=== PATIENT | male | born 1995 | race Caucasian/White ===

== ENCOUNTER 2018-05-16 16:47 | Emergency (ER) | payer MEDICAID ==
[2018-05-16 17:09] VITALS: BMI 25.8
[2018-05-16 17:10] VITALS: RESP 18; TEMP 98.1; O2SAT 100
[2018-05-16 18:06] LABS: PH,URINE 6.5 (4.7-8.0); URINE BILIRUBIN NEGATIVE (NEGATIVE); URINE BLOOD TRACE-LYSED (NEGATIVE); URINE GLUCOSE (UA) NEGATIVE (NEGATIVE); URINE LEUKOCYTE ESTERASE NEGATIVE Leu/uL (NEGATIVE); URINE PROTEIN TRACE mg/dL (<30 mg/dL)
[2018-05-16 18:08] LABS: ACETAMINOPHEN < 10.0 ug/ml (10.0-20.0); SALICYLATE < 1 mg/dL (2.0-20.0)
[2018-05-16 18:09] LABS: ALB/GLOB RATIO 1.6 (1.1-1.8); ALT/SGPT 37 U/L (7-56); AST/SGOT 25 U/L (17-59); BLOOD UREA NITROGEN 10 mg/dL (7-21); CALCIUM 9.8 mg/dL (8.4-10.5); GFR NON-AFRICAN AMERICAN > 60
[2018-05-16 18:16] LABS: URINE APPEARANCE CLEAR (CLEAR); URINE COLOR YELLOW (YELLOW)
[2018-05-16 18:18] LABS: BASO # 0.03 K/mm3 (0.0-2.0); BASO % 0.7 % (0.0-3.0); EOS # 0.1 (0.0-0.7); EOS % 1.2 % (1.5-5.0); GRAN # 2.34 (1.4-6.5); GRAN % 53.9 % (50.0-68.0); HEMOGLOBIN 15.2 g/dL (14.0-18.0); LYMPH # 1.6 (1.2-3.4); LYMPH % 36.3 % (22.0-35.0); MEAN CELL VOLUME 78.5 fl (80.0-105.0); MEAN CORPUSCULAR HEMOGLOBIN 27.7 pg (25.0-35.0); MEAN CORPUSCULAR HGB CONC 35.3 g/dl (31.0-37.0); MONO # 0.3 (0.1-0.6); MONO % 7.9 % (1.0-6.0); RBC 5.49 10^6/uL (3.5-6.1); RED CELL DISTRIBUTION WIDTH 12.8 % (11.5-14.5); WHITE BLOOD COUNT 4.3 10^3/ul (4.5-11.0)
[2018-05-16 18:23] LABS: URINE BACTERIA MANY (NEG); URINE COARSE GRANULAR CAST TRACE /hpf (0-2); URINE WBC 0 - 2 /hpf (0-6)
--- NOTE | 2018-05-16 18:39 | RAD ---
Date of service: 05/16/2018 HISTORY: pes eval COMPARISON: No prior. FINDINGS: LUNGS: No active pulmonary disease. PLEURA: No significant pleural effusion identified, no pneumothorax apparent. CARDIOVASCULAR: Normal. OSSEOUS STRUCTURES: No significant abnormalities. VISUALIZED UPPER ABDOMEN: Normal. OTHER FINDINGS: None. IMPRESSION: No active disease.
--- NOTE | 2018-05-16 18:51 | ED PDOC ---
Arrival/HPI - General Chief Complaint: Anxiety Time Seen by Provider: 05/16/18 17:17 Historian: Patient - History of Present Illness Narrative History of Present Illness (Text): 05/16/18 18:44 22yr old male presents today with anxiety and depression. pt states he has a lot of stress at work and has been having trouble sleeping. pt states he is tired but when he tries to rest his mind just keeps racing. pt denies SI or HI. pt denies cp or sob. no abdominal pain. pt denies hx of depression. no other complaints. Past Medical History - Provider Review Nursing Documentation Reviewed: Yes - Travel History Have you recently traveled outside [place] w/in the past 3 mons?: No - Infectious Disease Hx of Infectious Diseases: None - Tetanus Immunization Tetanus Immunization: Unknown - Past Medical History Past Medical History: No Previous - Cardiac Hx Cardiac Disorders: No - Pulmonary Hx Respiratory Disorders: No - Neurological Hx Neurological Disorder: No - HEENT Hx HEENT Disorder: No - Renal Hx Renal Disorder: No - Endocrine/Metabolic Hx Endocrine Disorders: No - Hematological/Oncological Hx Blood Disorders: No - Integumentary Hx Dermatological Disorder: No - Musculoskeletal/Rheumatological Hx Musculoskeletal Disorders: No - Gastrointestinal Hx Gastrointestinal Disorders: No - Genitourinary/Gynecological Hx Genitourinary Disorders: No - Psychiatric Hx Psychophysiologic Disorder: Yes Hx Anxiety: Yes Hx Depression: Yes Hx Substance Use: No - Surgical History Other/Comment: nasal - Anesthesia Hx Anesthesia: Yes Hx Anesthesia Reactions: No Hx Malignant Hyperthermia: No - Suicidal Assessment Feels Threatened In Home Enviroment: No Family/Social History - Physician Review Nursing Documentation Reviewed: Yes Family/Social History: Unknown Family HX Smoking Status: Heavy Smoker > 10 Cigarettes Daily Hx Alcohol Use: No Hx Substance Use: No Allergies/Home Meds Allergies/Adverse Reactions: Allergies No Known Allergies Allergy (Verified 04/23/15 16:24) Home Medications: Home Meds Medication Instructions Recorded Confirmed Unobtainable [Unobtainable] 04/23/15 04/23/15 Review of Systems - Review of Systems Constitutional: absent: Fatigue, Fevers Respiratory: absent: SOB, Cough Cardiovascular: absent: Chest Pain, Palpitations Gastrointestinal: absent: Abdominal Pain, Nausea, Vomiting Genitourinary Male: absent: Dysuria Musculoskeletal: absent: Arthralgias, Back Pain, Neck Pain Skin: absent: Rash, Pruritis Neurological: absent: Headache, Dizziness Psychiatric: Anxiety, Depression. absent: Suicidal Ideation Physical Exam Vital Signs Reviewed: Yes Vital Signs Temp Pulse Resp BP Pulse Ox 05/16/18 18:31 103 H 18 134/73 100 05/16/18 16:56 98.1 F 86 18 118/77 100 Temperature: Afebrile Blood Pressure: Normal Pulse: Regular Respiratory Rate: Normal Appearance: Positive for: Well-Appearing, Non-Toxic, Comfortable Pain Distress: None Mental Status: Positive for: Alert and Oriented X 3 - Systems Exam Head: Present: Atraumatic Mouth: Present: Moist Mucous Membranes Neck: Present: Normal Range of Motion Respiratory/Chest: Present: Clear to Auscultation, Good Air Exchange. No: Respiratory Distress, Accessory Muscle Use Cardiovascular: Present: Regular Rate and Rhythm, Normal S1, S2. No: Murmurs Abdomen: No: Tenderness Upper Extremity: Present: Normal ROM Lower Extremity: Present: Normal ROM Neurological: Present: GCS=15, Speech Normal Skin: Present: Warm, Dry, Normal Color. No: Rashes Psychiatric: Present: Alert, Oriented x 3 Medical Decision Making ED Course and Treatment: 05/16/18 18:52 Patient is nontoxic well-appearing in no distress vital signs are stable. CBC WNL CMP WNL Tylenol WNL Salicylate WNL Alcohol level WNL Urine drug screen wnl UA; wnl cxr: wnl ekg normal sinus rhythm at 79 bpm normal axis normal intervals no ST elevations pt is medically cleared for PES evaluation Patient was seen and evaluated by PES screener: daniele Patient cleared psychiatrically for discharge. Patient was advised to follow-up with [facility] and his primary care physician. He was advised to return immediately if symptoms worsen persist or if new concerning symptoms develop Impression; anxiety Followup with behavioral health Follow up with the primary care physician within the next 2 days return immediately if symptoms worsen,persist or if new symptoms develop. 05/16/18 19:49 - Lab Interpretations Lab Results: 05/16/18 17:40 05/16/18 17:40 Lab Results 05/16/18 17:40: Alcohol, Quantitative < 10 05/16/18 17:40: Salicylates < 1 L, Acetaminophen < 10.0 L 05/16/18 17:40: Urine Opiates Screen Negative, Urine Methadone Screen Negative, Ur Barbiturates Screen Negative, Ur Phencyclidine Scrn Negative, Ur Amphetamines Screen Negative, U Benzodiazepines Scrn Negative, U Oth Cocaine Metabols Negative, U Cannabinoids Screen Negative 05/16/18 17:40: Sodium 141, Potassium 3.7, Chloride 99, Carbon Dioxide 28, Anion Gap 18, BUN 10, Creatinine 0.9, Est GFR ( Amer) > 60, Est GFR (Non- Af Amer) > 60, Random Glucose 92, Calcium 9.8, Total Bilirubin 0.4, AST 25, ALT 37, Alkaline Phosphatase 51, Total Protein 8.0, Albumin 5.0 H, Globulin 3.0, Albumin/Globulin Ratio 1.6 05/16/18 17:40: Urine Color Yellow, Urine Appearance Clear, Urine pH 6.5, Ur Specific [place] 1.015, Urine Protein Trace H, Urine Glucose (UA) Negative, Urine Ketones Negative, Urine Blood Trace-lysed H, Urine Nitrate Negative, Urine Bilirubin Negative, Urine Urobilinogen 1.0 H, Ur Leukocyte Esterase Negative, Urine RBC 2 - 5, Urine WBC 0 - 2, Ur Epithelial Cells None, Urine Bacteria Many, Coarse Granular Casts Trace H, Urine Other Uyeast 05/16/18 17:40: WBC 4.3 L, RBC 5.49, Hgb 15.2, Hct 43.1, MCV 78.5 L, MCH 27.7, MCHC 35.3, RDW 12.8, Plt Count 275, MPV 11.0, Gran % 53.9, Lymph % (Auto) 36.3 H , [place] % (Auto) 7.9 H, Eos % (Auto) 1.2 L, Baso % (Auto) 0.7, Gran # 2.34, Lymph # (Auto) 1.6, [place] # (Auto) 0.3, Eos # (Auto) 0.1, Baso # (Auto) 0.03 - RAD Interpretation Radiology Orders: 05/16/18 17:18 CHEST PORTABLE [RAD] Stat Disposition/Present on Arrival - Present on Arrival Any Indicators Present on Arrival: No History of DVT/PE: No History of Uncontrolled Diabetes: No Urinary Catheter: No History of Decub. Ulcer: No History Surgical Site Infection Following: None - Disposition Have Diagnosis and Disposition been Completed?: Yes Diagnosis: Anxiety Disposition: HOME/ ROUTINE Disposition Time: 19:51 Patient Plan: Discharge Patient Problems: Current Active Problems Problem Status Onset Anxiety Acute Condition: GOOD Discharge Instructions (ExitCare): Anxiety, Adult (DC) Additional Instructions: Followup with behavioral health Follow up with the primary care physician within the next 2 days return immediately if symptoms worsen,persist or if new symptoms develop. Referrals: Mita Lovell MD [Primary Care Provider] - Follow up with primary [facility] [place] - Follow up with primary [facility] [Outside] - Follow up with primary [facility] [Outside] - Follow up with primary Forms: zanda (Kenyan), WORK NOTE
[2018-05-16 18:54] LABS: BARBITURATES, UR NEGATIVE (NEGATIVE); BENZODIAZEPINES, UR NEGATIVE (NEGATIVE); OPIATES, UR NEGATIVE (NEGATIVE); PHENCYCLIDINE, UR NEGATIVE (NEGATIVE)
[2018-05-16 19:59] VITALS: BP 107/67; PULSE 90
--- NOTE | 2018-05-18 05:16 | CARD ---
APPROVED REPORT Date of service: 05/16/2018 EKG Measurement Heart [id number] <Conclusion> Normal sinus rhythm Normal ECG
== END 2018-05-16 19:57 | disposition home or self-care (01) ==
LOC: ED 16:47
DX: F41.9 Anxiety disorder, unspecified (principal); F17.210 Nicotine dependence, cigarettes, uncomplicated

== ENCOUNTER 2018-05-17 22:46 | Emergency (ER) | payer MEDICAID ==
[2018-05-17 22:54] VITALS: BMI 26.2
[2018-05-17 22:57] VITALS: TEMP 98.5
--- NOTE | 2018-05-17 23:22 | ED PDOC ---
Arrival/HPI - General Historian: Patient <Jordan Gallegos - Last Filed: 05/17/18 23:58> - History of Present Illness Time/Duration: Other (4 days) Symptom Onset: Gradual Symptom Course: Unchanged <Candelaria Morejon - Last Filed: 05/18/18 01:33> - General Chief Complaint: Anxiety Time Seen by Provider: 05/17/18 23:05 - History of Present Illness Narrative History of Present Illness (Text): 05/17/18 23:19 Patient is a 22 year old male with no PMH presenting to the ED with trouble sleeping. Patient states that he is stressed at work and have been unable to sleep for the past 4 days. Patient states he is feeling depressed and anxious. Patient denies having any suicidal or homicidal ideation. Patient denies fevers , chills, shortness of breath, chest pain, abdominal pain, N/V/D, or any other complaints at this time. (Jordan Gallegos) Past Medical History - Provider Review Nursing Documentation Reviewed: Yes - Travel History Have you recently traveled outside [place] w/in the past 3 mons?: No - Past History Past History: No Previous - Infectious Disease Hx of Infectious Diseases: None - Tetanus Immunization Tetanus Immunization: Unknown - Past Medical History Past Medical History: No Previous - Cardiac Hx Cardiac Disorders: No Hx Hypertension: No - Pulmonary Hx Tuberculosis: No - Neurological HX Cerebrovascular Accident: No Hx Seizures: No - HEENT Hx HEENT Disorder: No - Renal Hx Renal Disorder: No - Endocrine/Metabolic Hx Endocrine Disorders: No - Hematological/Oncological Hx Cancer: No - Integumentary Hx Dermatological Disorder: No - Musculoskeletal/Rheumatological Hx Musculoskeletal Disorders: No - Gastrointestinal Hx Gastrointestinal Disorders: No - Genitourinary/Gynecological Hx Sexually Transmitted Diseases: No - Psychiatric Hx Psychophysiologic Disorder: Yes Hx Anxiety: Yes Hx Depression: Yes Hx Substance Use: No - Surgical History Other/Comment: nasal - Anesthesia Hx Anesthesia: Yes Hx Anesthesia Reactions: No Hx Malignant Hyperthermia: No - Suicidal Assessment Feels Threatened In Home Enviroment: No <Jordan Gallegos - Last Filed: 05/17/18 23:58> Family/Social History - Physician Review Nursing Documentation Reviewed: Yes Family/Social History: No Known Family HX Smoking Status: Heavy Smoker > 10 Cigarettes Daily Hx Alcohol Use: No Hx Substance Use: No <Jordan Gallegos - Last Filed: 05/17/18 23:58> Allergies/Home Meds <Jordan Gallegos - Last Filed: 05/17/18 23:58> <Candelaria Morejon - Last Filed: 05/18/18 01:33> Allergies/Adverse Reactions: Allergies No Known Allergies Allergy (Verified 05/17/18 22:53) Home Medications: Home Meds Medication Instructions Recorded Confirmed No Known Home Med 05/17/18 05/17/18 Review of Systems - Physician Review All systems were reviewed & negative as marked: Yes - Review of Systems Constitutional: Normal. absent: Fevers, Night Sweats Eyes: Normal ENT: Normal Respiratory: Normal. absent: SOB, Cough, Wheezing Cardiovascular: Normal. absent: Chest Pain Gastrointestinal: Normal. absent: Abdominal Pain, Stool Changes, Constipation, Diarrhea, Nausea, Vomiting Genitourinary Male: Normal. absent: Dysuria, Frequency Musculoskeletal: Normal Skin: Normal. absent: Rash, Pruritis, Skin Lesions, Laceration, Abscess Neurological: Normal, Headache. absent: Dizziness Psychiatric: Normal, Anxiety, Depression <Jordan Gallegos - Last Filed: 05/17/18 23:58> Physical Exam Vital Signs Reviewed: Yes Temperature: Afebrile Blood Pressure: Normal Pulse: Regular Respiratory Rate: Normal Appearance: Positive for: Well-Appearing, Non-Toxic, Comfortable Pain Distress: None Mental Status: Positive for: Alert and Oriented X 3 - Systems Exam Head: Present: Atraumatic, Normocephalic Pupils: Present: PERRL Extroacular Muscles: Present: EOMI Conjunctiva: Present: Normal Mouth: Present: Moist Mucous Membranes Respiratory/Chest: Present: Clear to Auscultation. No: Respiratory Distress, Accessory Muscle Use, Wheezes, Rales, Rhonchi Cardiovascular: Present: Regular Rate and Rhythm, Normal S1, S2. No: Murmurs, Rub, Gallop Abdomen: Present: Normal Bowel Sounds. No: Tenderness, Distention, Peritoneal Signs Upper Extremity: Present: Normal Inspection. No: Cyanosis, Edema Lower Extremity: Present: Normal Inspection. No: Edema Neurological: Present: GCS=15, CN II-XII Intact, Speech Normal Skin: Present: Warm, Dry, Normal Color. No: Rashes Psychiatric: Present: Alert, Oriented x 3, Normal Insight, Normal Concentration , Normal Affect, Normal Mood <Jordan Gallegos - Last Filed: 05/17/18 23:58> Vital Signs Temp Pulse Resp BP Pulse Ox 05/17/18 23:55 85 16 106/72 100 05/17/18 22:56 98.5 F 90 17 102/68 98 Medical Decision Making <Jordan Gallegos - Last Filed: 05/17/18 23:58> <Candelaria Morejon - Last Filed: 05/18/18 01:33> ED Course and Treatment: 05/17/18 23:24 Impression: Patient is a 22 year old male presenting to the ED with anxiety and trouble sleeping Differential Diagnosis included but are not limited to: - Insomnia - Depression - Anxiety Plan: -- Reassure patient Progress Notes: 05/17/18 23:58 - Patient instructed to buy [id number] sleeping aid. Also instructed patient to follow up with behavioral health. Patient is stable for discharge. (Jordan Gallegos) Patient Seen With Resident: In agreement with resident note which contains more details about the patient. Patient was seen and evaluated with resident. Came up with plan and treatment together. 22 year old male presents complaining of trouble sleeping. Plan: -- Reassess and disposition (Candelaria Morejon) <Jordan Gallegos - Last Filed: 05/17/18 23:58> - PA / ADMINISTRATIVE REPRESENTATIVE / Resident Statement MD/DO has reviewed & agrees with the documentation as recorded. MD/DO has examined the patient and agrees with the treatment plan. - Scribe Statement The provider has reviewed the documentation as recorded by the Scribe <Candelaria Morejon - Last Filed: 05/18/18 01:33> - Scribe Statement Mata Bermudez Provider Scribe Attestation: All medical record entries made by the Scribe were at my direction and personally dictated by me. I have reviewed the chart and agree that the record accurately reflects my personal performance of the history, physical exam, medical decision making, and the department course for this patient. I have also personally directed, reviewed, and agree with the discharge instructions and disposition. (Candelaria Morejon) Disposition/Present on Arrival - Present on Arrival Any Indicators Present on Arrival: No History of DVT/PE: No History of Uncontrolled Diabetes: No Urinary Catheter: No History of Decub. Ulcer: No History Surgical Site Infection Following: None - Disposition Have Diagnosis and Disposition been Completed?: Yes Disposition Time: 23:53 Patient Plan: Discharge <Jordan Gallegos - Last Filed: 05/17/18 23:58> <Candelaria Morejon - Last Filed: 05/18/18 01:33> - Disposition Diagnosis: Insomnia Disposition: HOME/ ROUTINE Condition: IMPROVED Discharge Instructions (ExitCare): Insomnia (DC) Additional Instructions: JOSE SOLANO, thank you for letting us take care of you today. Your provider was Candelaria Morejon MD and you were treated for TROUBLE SLEEPING. The emergency medical care you received today was directed at your acute symptoms. If you were prescribed any medication, please fill it and take as directed. It may take several days for your symptoms to resolve. Return to the Emergency Department if your symptoms worsen, do not improve, or if you have any other problems. Please contact your doctor or call one of the physicians/clinics you have been referred to that are listed on the Patient Visit Information form that is included in your discharge packet. Bring any paperwork you were given at discharge with you along with any medications you are taking to your follow up visit. Our treatment cannot replace ongoing medical care by a primary care provider outside of the emergency department. Thank you for allowing the [facility] team to be part of your care today. If you had an X-Ray or CT scan: A Radiologist will review the ED reading if any change in treatment is needed we will contact you. If you had a blood, urine, or wound culture: It will take several days for the results, if any change in treatment is needed we will contact you. If you had an STI test: It will take 48 hours for the results. Please call after 1 week if you have not heard back. Referrals: Maryanne Ellis MD [Medical Doctor] - Follow up with primary Forms: [employer] ([place]ican)
[2018-05-18 00:28] VITALS: BP 106/72; PULSE 85; RESP 16; O2SAT 100
== END 2018-05-17 23:55 | disposition home or self-care (01) ==
LOC: ED 22:46
DX: G47.00 Insomnia, unspecified (principal); F17.210 Nicotine dependence, cigarettes, uncomplicated